=== PATIENT | female | born 1955 | race Caucasian/White ===

== ENCOUNTER 2024-01-31 16:05 | Observation (INO) | payer MEDICARE ==
[~2024-01-31 16:05] MED LIST: Iopamidol-370 76% 500 ML MDV (1 ML CHARGE) ONE
[2024-01-31 16:49] LABS: #Basophils 0.04 10x3/uL (0.0-0.2); %Basophils 0.4 % (0.0-1.0); %Lymphocytes 12.6 % (21.0-51.0); %Monocytes 3.9 % (0.0-10.0); %Neutrophils 81.7 % (42.0-75.0); Hematocrit 37.6 % (36.0-47.0); Mean Corpuscular HGB CONC 34.6 g/dL (32.0-36.0); Mean Corpuscular Hemoglobin 33.2 pg (27.0-31.0); Mean Corpuscular Volume 96.2 fL (78.0-98.0); Mean Platelet Volume 9.1 fL (7.4-10.4); Platelet Count 217 10x3/uL (130-400); RBC Distribution Width 12.9 % (11.5-14.5); Red Blood Cell (RBC) Count 3.91 mill/uL (4.20-5.40)
[2024-01-31 17:06] LABS: ALT (SGPT) 11 U/L (8-55); AST (SGOT) 12 U/L (5-34); Albumin 3.3 g/dL (3.4-4.8); Alkaline Phosphatase 73 U/L (40-110); Anion Gap 10 mmol/L (10-20); BUN (Urea Nitrogen) 24 mg/dL (9.8-20.1); Bilirubin, Total 0.6 mg/dL (0.2-1.2); Calc. Creatinine Clearance 0 mL/min (70-130); Calcium 8.6 mg/dL (7.8-10.44); Carbon Dioxide 24 mmol/L (23-31); Chloride 110 mmol/L (98-107); Estimated GFR 48; Globulin 2.5 g/dL (2.4-3.5); Glucose 110 mg/dL (80-115); Magnesium 1.7 mg/dL (1.6-2.6); Potassium 4.5 mmol/L (3.5-5.1); Protein, Total 5.8 g/dL (5.8-8.1); Sodium 139 mmol/L (136-145)
[2024-01-31 17:08] LABS: INR-International Normal Ratio 1.2; PTT 27.4 sec (22.9-36.1); Prothrombin Time 14.7 sec (12.0-14.7)
[2024-01-31 17:11] LABS: Troponin I Less than 0.010 ng/mL (< 0.028)
[2024-01-31 20:56] VITALS: BMI 22.8
[2024-01-31] MEDS ORDERED: Ondansetron PF 4 MG/2 ML Vial IVP PRN (22:25)
[2024-01-31] MEDS ORDERED: Acetaminophen 325 MG TAB PO PRN (22:25)
[2024-01-31] MEDS: Amitriptyline HCl 25 MG TAB PO SCH (22:38)
[2024-01-31] MEDS: Sodium Chloride 0.9% 1,000 ML IV SCH (22:39)
[2024-02-01 04:53] LABS: #Basophils 0.04 10x3/uL (0.0-0.2); %Basophils 0.5 % (0.0-1.0); %Eosinophils 4.9 % (0.0-10.0); %Lymphocytes 46.4 % (21.0-51.0); %Monocytes 7.7 % (0.0-10.0); %Neutrophils 40.2 % (42.0-75.0); Hematocrit 33.8 % (36.0-47.0); Hemoglobin 11.5 g/dL (12.0-16.0); Mean Corpuscular Hemoglobin 33.1 pg (27.0-31.0); Mean Corpuscular Volume 97.4 fL (78.0-98.0); Mean Platelet Volume 9.4 fL (7.4-10.4); Platelet Count 205 10x3/uL (130-400); RBC Distribution Width 12.9 % (11.5-14.5); Red Blood Cell (RBC) Count 3.47 mill/uL (4.20-5.40)
[2024-02-01 05:44] LABS: Anion Gap 9 mmol/L (10-20); BUN (Urea Nitrogen) 17 mg/dL (9.8-20.1); Calc. Creatinine Clearance 62 mL/min (70-130); Calcium 8.2 mg/dL (7.8-10.44); Carbon Dioxide 22 mmol/L (23-31); Chloride 113 mmol/L (98-107); Estimated GFR 71; Glucose 74 mg/dL (80-115); Magnesium 1.6 mg/dL (1.6-2.6); Potassium 4.4 mmol/L (3.5-5.1); Sodium 140 mmol/L (136-145)
[2024-02-01] MEDS: Gabapentin 300 MG CAP PO SCH (09:18)
[2024-02-01] MEDS ORDERED: Non-Formulary Item 1 EACH (Gabapentin [Gabapentin] 600 MG Tablet) PO SCH (15:00)
[2024-02-01 16:15] VITALS: BP 139/74; TEMP 98.2
[2024-02-01] MEDS ORDERED: tiZANidine HCl 4 MG TAB PO SCH (21:00)
[2024-02-01] MEDS ORDERED: Non-Formulary Item 1 EACH (Tizanidine Hcl [Tizanidine Hcl] 4 MG Capsule) PO SCH (21:00)
[2024-02-01] MEDS ORDERED: Dicyclomine 20 MG TAB PO SCH (21:00)
[2024-02-01] MEDS ORDERED: Amitriptyline HCl 25 MG TAB PO SCH (21:00)
[2024-02-02] MEDS ORDERED: Meloxicam 15 MG TAB PO SCH (09:00)
[2024-02-02] MEDS ORDERED: Estradiol 1 MG TAB PO SCH (09:00)
== END 2024-02-01 18:13 | disposition home or self-care (01) ==
LOC: ERS 16:05 → 2SW 19:05
PROVIDERS: ADMIT Internal Medicine; ATTEND Emergency Medicine
PROC: B246ZZZ Ultrasonography of Right and Left Heart (ICD-10-PCS; principal; 2024-02-01)
DX: R55 Syncope and collapse (principal); I08.1 Rheumatic disorders of both mitral and tricuspid valves; N17.9 Acute kidney failure, unspecified; E86.0 Dehydration; Z91.040 Latex allergy status; Z87.891 Personal history of nicotine dependence
CPT/HCPCS: 70496; 70498; 70551; 71045; 80048; 82550; 83735 ×2; 83880; 84484; 85025; 85610; 85730; 93005; 93306; 96360; 96361; 99285; G0378 ×3; 36415; 80053; 84443; J7050; Q9967